=== PATIENT | female | born 1960 | race Caucasian/White ===

== ENCOUNTER 2024-09-21 18:38 | Emergency (ER) | payer OTHER ==
[~2024-09-21] VITALS: Ht 160 cm; Wt 66.7 kg
[~2024-09-21 18:38] MED LIST: MELO-108 PO; ORPH100T4 PO
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
[2024-09-21 21:30] VITALS: BP 130/67; PULSE 78; RESP 16; TEMP 98.3; O2SAT 99
== END 2024-09-21 21:09 | disposition home or self-care (01) ==
LOC: EDH 18:38
DX: M54.2 Cervicalgia (principal); M54.9 Dorsalgia, unspecified; M79.18 Myalgia, other site; Z79.899 Other long term (current) drug therapy; Z88.8 Allergy status to other drugs, medicaments and biological substances; Z90.49 Acquired absence of other specified parts of digestive tract; V89.2XXA Person injured in unspecified motor-vehicle accident, traffic, initial encounter; Y93.89 Activity, other specified; Y92.488 Other paved roadways as the place of occurrence of the external cause; Y99.8 Other external cause status
CPT/HCPCS: 99281